=== PATIENT | male | born 1960 | race Caucasian/White ===

== ENCOUNTER 2023-05-29 01:28 | Emergency (ER) | payer OTHER, SELFPAY ==
[2023-05-29 01:35] VITALS: BP 172/79; PULSE 78; RESP 18; TEMP 36.4; O2SAT 96; BMI 29.6
--- NOTE | 2023-05-29 01:53 | ED.DENTAL1 ---
HPI - Dental/Oral General Chief complaint: Dental/Oral Stated complaint: DENTAL PAIN Time Seen by Provider: 05/29/23 01:46 Source: patient Mode of arrival: walk-in Limitations: no limitations History of Present Illness HPI Narrative: patient presents complaining of dental pain. Started around 5pm yesterday and pain has increased. No relief with Acetaminophen. No obvious swelling. No fever or nausea Teeth map: 1. Onset (ago): hour(s) Duration: constant Exacerbating factors: chewing Related Data Allergies Allergy/AdvReac Type Severity Reaction Status Date / Time cefazolin Allergy Unknown Verified 05/29/23 01:41 codeine Allergy Unknown Verified 05/29/23 01:41 Review of Systems ROS Status of ROS 10 or more systems reviewed and unremarkable except as noted in history and below [facility] Social History Smoking status: Current every day smoker Exam Constitutional Vital Signs - 24 hr 05/29/23 01:35 Temperature 97.5 F L Pulse Rate [Monitor] 78 Respiratory Rate 18 Blood Pressure [Left Arm] 172/79 H Pulse Oximetry 96 Oxygen Delivery Method Room Air Common normals: no apparent distress, average body habitus, oriented x3, no limitations and healthy appearing HENOH Common normals: normocephalic and head/scalp atraumatic Eye Common normals: PERRL, EOMs intact bilaterally and conjunctivae normal Respiratory Common normals: normal respiratory effort, no retractions, no use of accessory muscles and clear to auscultation bilaterally Cardio Common normals: regular rate, regular rhythm, S1 normal heart sound and S2 normal heart sound Extremity Common normals: normal to inspection and full ROM Neuro Common normals: oriented x3, CN's II-XII intact bilaterally, moves all extremities and no focal motor deficits Psych Appearance: grossly normal Speech: normal speech Course Vital Signs Vital signs: Vital Signs Temperature 97.5 F L 05/29/23 01:35 Pulse Rate 78 05/29/23 01:35 Respiratory Rate 18 05/29/23 01:35 Blood Pressure 172/79 H 05/29/23 01:35 Pulse Oximetry 96 05/29/23 01:35 Oxygen Delivery Method Room Air 05/29/23 01:35 Temperature 97.5 F L 05/29/23 01:35 Pulse Rate 78 05/29/23 01:35 Respiratory Rate 18 05/29/23 01:35 Blood Pressure 172/79 H 05/29/23 01:35 Pulse Oximetry 96 05/29/23 01:35 Oxygen Delivery Method Room Air 05/29/23 01:35 MDM - Dental/Oral MDM Narrative Medical decision making narrative: patient presents with dental pain. Worsening pain since last PM. left pos. lower molar is tender. No definite caries. Patient advised that he likely has underlying infection to account for progressive pain. Will treat with course of amoxicillin. Patient has allergy to cephalosporin but states he can take PCN. Discharged with prescription for Amoxicillin and provided [place] tonight for pain Discharge Plan Discharge Chief Complaint: Dental/Oral Clinical Impression: Dental abscess Instructions: Dental Abscess (ED) Additional Instructions: follow up with your dentist later this week Stand Alone Forms: Portal Instructions Referrals: Physician,Non-Staff, MD [Primary Care Provider] - 1 week
[2023-05-29] MEDS: HYDROCODONE/ACETAMINOPHEN 5-325 MG TABLET 4 TAB PO (02:11)
[2023-05-29] MEDS: AMOXICILLIN 500 MG CAPSULE 1000 MG PO (02:11)
== END 2023-05-29 02:10 | disposition home or self-care (01) ==
PROVIDERS: Emergency Provider Internal Medicine
DX: K04.7 Periapical abscess without sinus (principal); F17.210 Nicotine dependence, cigarettes, uncomplicated
CPT/HCPCS: 99283

== ENCOUNTER 2023-07-08 03:19 | Emergency (ER) | payer OTHER, SELFPAY | END 2023-07-08 05:50 | disposition home or self-care (01) | PROVIDERS: Emergency Provider Student in an Organized Health Care Education/Training Program | DX: K04.7 Periapical abscess without sinus (principal); F17.210 Nicotine dependence, cigarettes, uncomplicated | CPT/HCPCS: 99282 ==

== ENCOUNTER 2025-09-28 00:20 | Emergency (ER) | payer OTHER, SELFPAY ==
[2025-09-28] VITALS (7 sets, daily range): BP systolic 150–175; BP diastolic 72–85; PULSE 87–98; TEMP 37.3; O2SAT 88–99; BMI 31.4
--- NOTE | 2025-09-28 00:23 | ED.GENADUL1 ---
HPI HPI - General Adult General Chief complaint: Syncope Stated complaint: syncope/sob Time Seen by Provider: 09/28/25 00:22 History of Present Illness HPI narrative: 65-year-old male presented to the emergency department for a syncopal episode. He states he was in his garage and was moving some stuff around that he should have been doing and he got short of breath and he passed out. He sat down on the couch. He did not fall or injure himself in any way. He did not have any palpitations but he felt it coming on and he felt short of breath. His breathing is now back to normal. Related Data Home Medications ?Medication ?Instructions ?Recorded ?Confirmed albuterol sulfate 90 mcg/actuation 2 puff inhalation Q4H PRN 09/28/25 09/28/25 aerosol inhaler (Ventolin HFA) shortness of breath or wheezing amlodipine 10 mg tablet 10 mg PO DAILY 09/28/25 09/28/25 aspirin 81 mg tablet,delayed 81 mg PO DAILY 09/28/25 09/28/25 release atorvastatin 80 mg tablet 80 mg PO HS 09/28/25 09/28/25 citalopram 20 mg tablet 30 mg PO DAILY 09/28/25 09/28/25 clonazepam 1 mg tablet 0.5 mg PO HS 09/28/25 09/28/25 empagliflozin 10 mg tablet 25 mg PO DAILY 09/28/25 09/28/25 (Jardiance) isosorbide mononitrate 30 mg 30 mg PO DAILY 09/28/25 09/28/25 tablet,extended release 24 hr metformin 1,000 mg tablet 1,000 mg PO BID 09/28/25 09/28/25 metoprolol tartrate 25 mg tablet 25 mg PO BID 09/28/25 09/28/25 nitroglycerin 0.4 mg sublingual 0.4 mg sublingual Q5M PRN chest 09/28/25 09/28/25 tablet pain omeprazole 20 mg capsule,delayed 20 mg PO DAILY 09/28/25 09/28/25 release theophylline 300 mg 300 mg PO Q24H 09/28/25 09/28/25 tablet,extended release,12 hr tiotropium bromide 2.5 2 puff inhalation Q24H 09/28/25 09/28/25 mcg/actuation mist for inhalation (Spiriva Respimat) valsartan 320 1 tab PO DAILY 09/28/25 09/28/25 mg-hydrochlorothiazide 25 mg tablet Previous Rx's ?Medication ?Instructions ?Recorded azithromycin 250 mg tablet See Rx Instructions PO .COMPLEX #6 09/28/25 (Zithromax Z-Abdon) tabs Allergies Allergy/AdvReac Type Severity Reaction Status Date / Time cefazolin Allergy Unknown itchy Verified 09/28/25 00:33 codeine Allergy Unknown Rash Verified 09/28/25 00:33 varenicline (From Chantix) Allergy AMS Verified 09/28/25 00:33 Review of Systems ROS Narrative A ten point review of systems is negative except as noted above. 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 ?Z47.1 - Aftercare following joint replacement surgery (ICD-10) ?Z96.622 - Presence of left artificial elbow joint (ICD-10) Sleep apnea ?G47.30 - Sleep apnea, unspecified (ICD-10) Diabetes ?E11.9 - Type 2 diabetes mellitus without complications (ICD-10) COPD (chronic obstructive pulmonary disease) ?J44.9 - Chronic obstructive pulmonary disease, unspecified (ICD-10) Surgical History (Updated 09/28/25 @ 00:35 by Mary Ellen Kearney) Status post left foot surgery ?Z98.890 - Other specified postprocedural states (ICD-10) Social History Smoking status: Current every day smoker Little interest or pleasure in doing things: not at all Feeling down, depressed, or hopeless: not at all Exam Narrative Exam Narrative: Nurses note and vital signs reviewed General:The patient appears in no acute respiratory distress. Skin:Warm, dry, no pallor noted.There is no rash noted. Head:Normocephalic, atraumatic Eye: Normal conjunctiva, no drainage Ears, Nose, Mouth, and Throat: oral mucosa is moist. Nares patent. Cardiovascular:Regular Rate and Rhythm Respiratory:Patient is in no distress, no accessory muscle use, a few rhonchi noted with good air movement Back:non-tender GI: Soft and nontender Musculoskeletal: The patient has no evidence of calf tenderness, no pitting edema, symmetrical pulses noted bilaterally Neurological:A&O x4, normal speech; somewhat tremorous Psychiatric:Cooperative Constitutional Vital Signs, click to edit/add: Last Vital Signs Temp 99.2 F 09/28/25 00:26 Pulse 95 H 09/28/25 00:26 Resp 24 H 09/28/25 00:26 BP 175/85 H 09/28/25 00:26 Pulse Ox 95 09/28/25 00:26 O2 Del Method Room Air 09/28/25 00:26 Course Vital Signs Vital signs: Vital Signs Temperature 99.2 F 09/28/25 00:26 Pulse Rate 95 H 09/28/25 00:26 Respiratory Rate 24 H 09/28/25 00:26 Blood Pressure 175/85 H 09/28/25 00:26 Pulse Oximetry 95 09/28/25 00:26 Oxygen Delivery Method Room Air 09/28/25 00:26 Temperature 99.2 F 09/28/25 00:26 Pulse Rate 95 H 09/28/25 00:26 Respiratory Rate 24 H 09/28/25 00:26 Blood Pressure 175/85 H 09/28/25 00:26 Pulse Oximetry 95 09/28/25 00:26 Oxygen Delivery Method Room Air 09/28/25 00:26 Medical Decision Making MDM Narrative Medical decision making narrative: The patient has no symptoms and has not had any since he arrived here. He has no chest pain. 2 sets of troponin are unchanged. EKG shows some ST segment depression laterally but there is no previous for comparison and he is asymptomatic with 2 negative troponins. He is scheduled to see his literacy specialist for consultation to arrange possible bypass surgery. He feels back to normal now and wants to go home. The patient recalls that he has been coughing up some green phlegm for a few days so he will be prescribed Zithromax. Treatment diagnosis and follow-up were discussed with the patient. Differential Diagnosis Differential Diagnosis: Syncope, cardiac dysrhythmia, dehydration, anemia Lab Data Lab results reviewed: Yes I reviewed the patient's lab results Labs: Lab Results 09/28/25 09/28/25 Range/Units 00:20 01:12 EST WBC 19.2 H (4.0-11.0) 10^3/uL RBC 4.90 (4.70-6.10) 10^6/uL Hgb 13.9 L (14.0-18.0) g/dL Hct 42.0 (42.0-54.0) % MCV 85.7 (80.0-94.0) fL MCH 28.4 (25.9-34.0) pg MCHC 33.1 (29.9-35.2) g/dL RDW 13.8 (11.0-15.0) % Plt Count 229 (150-450) 10^3/uL MPV 10.3 (9.5-13.5) fL Seg Neuts % (Manual) 49.0 (43.0-75.0) Band Neutrophils % 1.0 (0-5) % Lymphocytes % (Manual) 39.0 (20.5-60.0) % Monocytes % (Manual) 6.0 (1.7-12.0) % Eosinophils % (Manual) 4.0 (0.9-7.0) % Basophils % (Manual) 1.0 (0.2-2.0) % Neutrophils # (Manual) 9.40 H (1.4-6.5) 10^3/uL Band Neutrophils # 0.2 (0.0-0.3) 10^3/uL Lymphocytes # (Manual) 7.48 H (1.20-3.80) 10^3/uL Monocytes # (Manual) 1.15 H (0.30-0.80) 10^3/uL Eosinophils # (Manual) 0.76 H (0.00-0.70) 10^3/uL Basophils # (Manual) 0.19 H (0.00-0.10) 10^3/uL Sodium 138 (136-145) mmol/L Potassium 4.1 (3.5-5.1) mmol/L Chloride 105 (98-107) mmol/L Carbon Dioxide 23.1 (21.0-32.0) mmol/L Anion Gap 14.0 BUN 10.0 (7.0-18.0) mg/dL Creatinine 0.73 (0.70-1.30) mg/dL Est GFR ( Amer) >60 (>=60 mL/min/1.73m^2) Est GFR (Non-Af Amer) >60 (>=60 mL/min/1.73m^2) BUN/Creatinine Ratio 13.7 Glucose 133 H (74-106) mg/dL Calcium 9.1 (8.5-10.1) mg/dL Troponin I High Sens 82.3 H* 80.9 H* (4.0-76.1) pg/mL Imaging Data Chest x-ray: My impression: No acute findings ECG Data Attestation: I personally reviewed and interpreted this ECG as follows: (EKG on my interpretation shows sinus rhythm shows sinus rhythm with ST segment depression inferior laterally. No previous for comparison.) Discharge Plan Discharge Chief Complaint: Syncope Clinical Impression: Syncope Patient Disposition: Home, Self-Care Time of Disposition Decision: :01 Condition: Good Mode of Transportation: Private Vehicle Prescriptions / Home Meds: New azithromycin [Zithromax Z-Abdon] 250 mg tablet See Rx Instructions .ROUTE .COMPLEX Qty: 6 0RF Rx Instructions: For 250 mg dose pack: take 500 mg today (day 1), then 250 mg for 4 days (days 2-5) No Action albuterol sulfate [Ventolin HFA] 90 mcg/actuation HFA aerosol inhaler 2 puff INHALATION Q4H PRN (Reason: shortness of breath or wheezing) amlodipine 10 mg tablet 10 mg PO DAILY aspirin 81 mg tablet,delayed release (DR/EC) 81 mg PO DAILY atorvastatin 80 mg tablet 80 mg PO HS citalopram 20 mg tablet 30 mg PO DAILY clonazepam 1 mg tablet 0.5 mg PO HS Jardiance 10 mg tablet 25 mg PO DAILY isosorbide mononitrate 30 mg tablet extended release 24 hr 30 mg PO DAILY metformin 1,000 mg tablet 1,000 mg PO BID metoprolol tartrate 25 mg tablet 25 mg PO BID nitroglycerin 0.4 mg tablet, sublingual 0.4 mg sublingual Q5M PRN (Reason: chest pain) omeprazole 20 mg capsule,delayed release(DR/EC) 20 mg PO DAILY theophylline 300 mg tablet extended release 12 hr 300 mg PO Q24H Spiriva Respimat 2.5 mcg/actuation mist 2 puff INHALATION Q24H valsartan-hydrochlorothiazide 320-25 mg tablet 1 tab PO DAILY Print Language: Tajik Instructions: Syncope (ED) Referrals: Physician,Non-Staff, MD [Primary Care Provider] - 1 week
--- OUTSIDE RECORDS SUMMARY | 2025-09-28 00:29 | XMS_ITS | Clinical Summary ---
Author Organization [facility] Address [address] [place] [address], [address] [place] [address] Care Team Providers Care Communication Technician Name Role Phone Unavailable Primary Care Provider Unavailabl e Social History Tobacco UseTypesPacks/DayYears UsedDateSmoking Tobacco: Never AssessedSex and Gender InformationValueDate RecordedSex Assigned at BirthNot on fileLegal Sex Male09/22/2014 10:32 AM EDTGender IdentityNot on fileSexual OrientationNot on file Plan of Treatment Not on file
--- OUTSIDE RECORDS SUMMARY | 2025-09-28 00:29 | XMS_ITS | Clinical Summary ---
Author Organization [facility] Address [address] [place] [address] Care Team Providers Care Signals Intelligence Analysis Manager Name Role Phone Zena Calvo MD Primary Care Provider [phone] Allergies Active AllergyReactionsCriticalityNoted TvmwLalynanmVqqyvfbbcqGlrptdo03/09/2024 Other Reaction(s): Anaphylaxis, rash CodeineHeadache,LithmbjZtdvkv90/09/2023 Other Reaction(s): Anaphylaxis, irritabilty EsomeprazoleHives,GI wkqndlnxhinGow44/09/2023 Other Reaction(s): Nausea, stomach upset GxpyvngirbUjxnzzc55/07/7416TnnlmxmzqpsDzedypwjabnikqAaom65/09/2023 Other Reaction(s): Swelling, dizziness Medications MedicationSigDispense QuantityRefillsLast FilledStart DateEnd DateStatus acetaminophen (Tylenol) 500 MG tablet Every 4 hours as pejsjk2309/30/2024ctive albuterol HFA 90 mcg/act inhaler Q4H as needed for Shortness Of Tondgy5511/06/2024ctive amLODIPine (Norvasc) 5 MG tablet Daily09/30/2024ctive atorvastatin (Lipitor) 80 MG tablet Daily09/30/2024ctive citalopram (CeleXA) 20 MG tablet Take 40 mg by mouth Daily03/31/2025tive clonazePAM (KlonoPIN) 1 MG tablet Daily at vqdvfeh9509/30/2024ctive empagliflozin (Jardiance) 25 MG Daily09/30/2024ctive isosorbide mononitrate ER (Imdur) 30 MG 24 hr tablet Every gionlax8212/30/2024tive metFORMIN (Glucophage) 1000 MG tablet Twice daily09/30/2024ctive metoprolol tartrate (Lopressor) 25 MG tablet Twice daily05/22/2024ctive nitroglycerin (Nitrostat) 0.[address] 1 TAB UNDER TONGUE EVERY 5 MIN UP TO 3 DOSES NEEDED FOR CHEST PAIN*CALL 911 IF PAIN OONELNR1005/22/2024ctive omega-3 (Fish Oil) 1000 MG capsule Take 1 tablet by mouth in the morning and 1 tablet in the evening.Active omeprazole (PriLOSEC) [address] capsule Take 1 tablet by mouth in the morning.Active theophylline ER (Carlos-24) 300 MG 24 hr capsule Daily09/30/2024ctive valsartan-hydroCHLOROthiazide (Diovan-HCT) 320-25 MG tablet 1 ghhilk4605/22/2024ctive tiotropium (Spiriva Respimat) 2.5 MCG/ACT inhaler INHALE 2 PUFFS BY MOUTH ONCE A DAY04/23/2024ctive magnesium oxide (Mag-Ox) 400 (240 Mg) MG tablet Take 400 mg by mouth Daily12/31/2024tive sulfamethoxazole-trimethoprim (Bactrim DS) 800-160 MG per tablet Take by mouthActive Active Problems ProblemNoted DateDiagnosed DateSebaceous cyst04/03/2025 Family History Medical HistoryRelationNameCommentsBreast cancerMotherColon cancerNeg HxOvarian cancerNeg HxPancreatic cancerNeg VuIdflwgpgJseiJmgvbkWxunmllzVhwdpra11 brothers!!FatherDeceasedMotherDeceasedSister6 sisters Social History Tobacco UseTypesPacks/DayYears UsedDateSmoking Tobacco: Every DayCigarettes Tobacco Cessation:Ready to Q uit: Not Asked; Counseling Given: Not Answered Alcohol UseStandard Drinks/WeekCommentsNot Currently0 (1 standard drink = 0.6 oz pure alcohol)Sex and Gender InformationValueDate RecordedSex Assigned at Not on fileLegal OcnNbvj6902/08/2023 6:47 PM EDTGender IdentityNot on fileSexual OrientationNot on file Last Filed Vital Signs Vital SignReadingTime TakenCommentsBlood Pressure--Pulse--Temperature-- Respiratory Rate--Oxygen Saturation--Inhaled Oxygen Concentration--Fgthmp66.3 kg (219 lb)04/03/2025 9:22 AM JLKSmmhdn359.8 cm (5' 10 )04/03/2025 9:22 AM EDTBody Mass Index31.42004/03/2025 9:22 AM EDT Plan of Treatment Not on file Insurance Care Teams Team MemberRelationshipSpecialtyStart DateEnd Date Zena Calvo MD [address] [place] [phone] PCP - GeneralFamily Medicine04/02/25
--- OUTSIDE RECORDS SUMMARY | 2025-09-28 00:29 | XMS_ITS | Clinical Summary ---
Author Organization [facility] Address [address] [place] [address] Phone Care Team Providers Care Leak Inspector Name Role Phone Zena Calvo Primary Care Provider Allergies Active AllergyReactionsCriticalityNoted CihyRcwuxpleXldvuftjdmZvfpgba49/09/2024 PfmkqcwEjguzwuiPaclmv80/09/2679SjuqgrumzxlrRgojzHlh36/09/2023rednisoneOther Vazytq0606/05/2025 shaking OulqyoizbseIwddawigqfgqnfWzoy54/09/2023 Medications MedicationSigDispense QuantityRefillsLast FilledStart DateEnd DateStatus Ventolin HFA 90 mcg/actuation inhaler INHALE 2 PUFFS INTO THE LUNGS EVERY 4 HOURS NEEDED FOR 90 DAYSActive clonazePAM (KlonoPIN) 1 mg disintegrating tablet Take 0.5 tablets by mouth as needed at bedtime.Active fish oil concentrate ([place]-3) 120-180 mg capsule Take 1 tablet by mouth 2 times a day.Active metFORMIN (Glucophage) 1,000 mg tablet Take 1 tablet (1,000 mg) by mouth 2 times daily (morning and late afternoon). Active omeprazole (PriLOSEC) [address] capsule Take 1 tablet by mouth once daily.Active theophylline ER (Carlos-Dur) 300 mg 12 hr tablet Take 1 tablet (300 mg) by mouth once daily.Active Spiriva Respimat 2.5 mcg/actuation inhaler INHALE 2 PUFFS BY MOUTH ONCE A DAY04/23/2024ctive nitroglycerin (Nitrostat) 0.4 mg SL tablet Indications:Atherosclerosis of [place] coronary artery of [place] heart without angina pectorisPLACE 1 TAB UNDER TONGUE EVERY 5 MIN UP TO 3 DOSES NEEDED FOR CHEST PAIN*CALL 911 IF PAIN PERSIST 25 tablet ctive aspirin 81 mg EC tablet Indications:Atherosclerosis of [place] coronary artery of [place] heart without angina pectoris,Hypertension, essential, benign,S/P PTCA (percutaneous transluminal coronary angioplasty)Take 1 tablet (81 mg) by mouth once daily. 90 tablet /ctive amLODIPine (Norvasc) 10 mg tablet Indications:Hypertension, essential, benignTake 1 tablet (10 mg) by mouth once daily. as directed 90 tablet ctive atorvastatin (Lipitor) 80 mg tablet Indications:Mixed hyperlipidemiaTake 1 tablet (80 mg) by mouth once daily at bedtime. 90 tablet ctive isosorbide mononitrate ER (Imdur) 30 mg 24 hr tablet Indications:Atherosclerosis of [place] coronary artery of [place] heart without angina pectoris,S/P PTCA (percutaneous transluminal coronary angioplasty),Aortic valve stenosis, etiology of cardiac valve disease unspecifiedTake 1 tablet (30 mg) by mouth once daily. 90 tablet ctive metoprolol tartrate (Lopressor) 25 mg tablet Indications:Hypertension, essential, benignTake 1 tablet (25 mg) by mouth 2 times a day. 180 tablet ctive magnesium oxide 400 mg magnesium capsule Indications:Atherosclerosis of [place] coronary artery of [place] heart without angina pectorisTake 1 capsule (400 mg) by mouth once daily. 90 capsule ctive valsartan-hydrochlorothiazide (Diovan-HCT) 320-25 mg tablet Indications:Hypertension, essential, benignTake 1 tablet by mouth once daily. 90 tablet ctive citalopram (CeleXA) 20 mg tablet Take by mouth once daily.06/20/2025tive omega 3-bgu-mmr-fish oil (Fish OiL) 1,000 (120-180) mg capsule Take 2 capsules (2,000 mg) by mouth once daily.01/23/2024ctive amLODIPine (Norvasc) 5 mg tablet Take 1 tablet (5 mg) by mouth early in the morning..06/20/2025tive albuterol 2.5 mg /3 mL (0.083 %) nebulizer solution Take 3 mL (2.5 mg) by nebulization every 4 hours if needed.5Active Jardiance 25 mg Take 1 tablet (25 mg) by mouth once daily.iscontinued () Active Problems ProblemNoted DateDiagnosed DateBMI 30.0-30.9,adult05/29/2025urrent smoker 05/22/2024OE (dyspnea on exertion)05/22/2024ortic oaeqvutw18/09/2023 Atherosclerosis of [place] coronary artery of [place] heart without angina jkpolrzp17/09/2023hest pain09/04/2023OPD (chronic obstructive pulmonary disease)09/04/2023ough syncope qntidhag93/09/9792Gkupnpcv83/09/2023 Hypertension, essential, vpzjda9709/04/2023LVH (left ventricular hypertrophy) 09/04/2023Mixed ejrqwslrqhriix93/09/2023S/P PTCA (percutaneous transluminal coronary angioplasty)09/04/2023arotid bruit09/04/2023Murmur, heart09/04/2023 Intermittent ogwbuhdaxbic78/09/2023 Resolved Problems ProblemNoted DateDiagnosed DateResolved DateBMI 29.0-29.9,adult05/22/2024 05/29/2025 Encounters DateTypeDepartmentCare RclyIxboscxkman28/02/2025Telephone [facility] [employer] [facility] [address] [employer] [facility] [address] [place] [phone] London Weston MD 08/25/2025Orders Only [facility] [employer] [facility] [address] [facility] [address] [address] [place] [phone] LungMarquis RN 08/15/2025Orders Only [facility] [address] [employer] [facility] [address] [place] [phone] Marquis Davidson RN Nonrheumatic aortic (valve) stenosis; Preoperative kbrjhlq6508/15/2025Orders Only [facility] [place] [address] [place] [address] Racheal Bridges, JUAN LUIS Nonrheumatic aortic (valve) stenosis (Primary Dx)08/15/2025Telephone [facility] [place] [address] [place] [address] [place] [address] Racheal Bridges, JUAN LUIS 08/11/2025ardiology Conference [facility] [place] [address] [place] [address] [place] [address] Joellen Brown RN 08/06/2025 3:00 PM EDTOffice Visit [facility] [address] [address] [place] [phone] London Weston MD Nonrheumatic aortic (valve) stenosis (Primary Dx)08/06/2025 2:30 PM EDTOffice Visit [facility] [address] [facility] [address] [place] [phone] Albert Malloy MD Severe aortic stenosis (Primary Dx) Discharge Disposition: Home08/06/2025Telephone [facility] [address] [place] [address] [place] [address] Racheal Bridges, JUAN LUIS 08/06/20250418Ydenqf93/22/2025 8:20 AM EDT - 07/18/2025 11:59 PM EDTHospital Encounter [facility] [address] [place] [phone] Nonrheumatic aortic (valve) stenosis Discharge Disposition: Home07/18/20255225Bloqpk68/21/2025Scanned Document [facility] [address] [place] [phone] Scanning, Generic Provider 07/17/2025Orders Only [facility] [address] [place] [address] Yg Sharma DO 07/07/2025Telephone [facility] [address] [phone] Yg Sharma, from Last 3 Months Immunizations ImmunizationAdministration DatesNext DueFlu vaccine (IIV4), preservative free *Check age/dose*11/22/2019 Family History Medical HistoryRelationNameCommentsDiabetesFathermiFatherNo Known ProblemsMother Coronary artery diseaseSistercabgSisterRelationNameStatusCommentsFatherMother Sister Social History Tobacco UseTypesPacks/DayYears UsedDateSmoking Tobacco: WtjdgkWrigbpprwu3066 - 2024Smokeless Tobacco: Never Tobacco Cessation:Counseling Given: Not Answered Alcohol UseStandard Drinks/WeekCommentsNever0 (1 standard drink = 0.6 oz pure alcohol)PHQ-2AnswerDate RecordedPatient Health Questionnaire-2 Ealrc112 Sex and Gender InformationValueDate RecordedSex Assigned at BirthNot on file Legal HyvKnvl49/26/2022 1:52 PM ESTGender IdentityNot on fileSexual Orientation Not on file Last Filed Vital Signs Vital SignReadingTime TakenCommentsBlood Ozltjltp233/7209 2:19 PM EDT Gasne3926 2:19 PM PCDYtjpezqcpuk73.5 ??C (97.7 ??F)08/06/2025 2:19 PM EDTRespiratory Rate--Oxygen Xysqywrfhw33%08/06/2025 2:19 PM EDTInhaled Oxygen Concentration--Kkzufv61.8 kg (220 lb)08/06/2025 2:19 PM XTFTwtspv815.8 cm (5' 10 )08/06/2025 2:19 PM EDTBody Mass Index31.5709 2:19 PM EDT Plan of Treatment DateTypeDepartmentCare Team (Latest Contact Info)Lkafhyrfbro09/06/2025 9:30 AM ESTAppointment [facility] [address] [place] [address] 10/02/2025 10:00 AM ESTAppointment [facility] [address] [place] [address] 10/17/2025 10:00 AM ESTOffice Visit [facility] [employer] [facility] [address] [facility] [address] [place] [address] [place] [address] Department [place] [address] 12/10/2025 10:10 AM ESTOffice Visit [facility] [address] [facility] [address] [place] [address] Yg Sharma, [address] [facility] [address] [place], [place] [phone] Health MaintenanceDue DateLast DoneCommentsCT Qvligfciaevy1961Colonoscopy 1Colorectal Cancer Uagcyzvjt1961iabetes: Hemoglobin A1C 1961iabetes: Urine Protein Azzlvxpuh1961FIT-DNA (Cologuard) 1960FIT1960HIV Vjtkuwkox17/02/5612Afejimyofpcpp1961MMR Vaccines (1 of 1 - Standard series)2COVID-19 Vaccine (#1)1966 Diabetes: Retinopathy Jstmafjgq75/02/1971Hepatitis C Ykxypxjxu08/02/1979 Hepatitis A Vaccines (1 of 2 - Risk 2-dose series)1980Pneumococcal Vaccine (1 of 2 - PCV)1980Zoster Vaccines (1 of 2)1980DTaP/Tdap/Td Vaccines (1 - Tdap)1983PSA Prostate Cancer Bssaoolis70/02/2011RSV High Risk: (Elderly (60+) or Population) (1 - Risk 50-74 years 1-dose series) 2011Hepatitis B Vaccines (1 of 3 - Risk 3-dose series)1Lipid Panel04//04/2021Yearly Adult Iudvndao60/05/2021Influenza Vaccine (#1)HIB VaccinesAged OutNo longer eligible based on patient's age to complete this topicHPV VaccinesAged OutNo longer eligible based on patient's age to complete this topicIPV VaccinesAged OutNo longer eligible based on patient's age to complete this topicMeningococcal VaccineAged OutNo longer eligible based on patient's age to complete this topicRotavirus Vaccines Aged OutNo longer eligible based on patient's age to complete this topic Procedures Procedure NamePriorityDate/TimeAssociated DiagnosisCommentsCT TAVR FULL CONTRAST CHEST ABDOMEN TEYUGHLrqpisi38/22/2025 9:20 AM EDT Nonrheumatic aortic (valve) stenosis ELECTROCARDIOGRAM 12 LEAD07/17/2025 8:07 AM EDT NON-[facility] HIE BLOOD UREA REYHQDZMOqnghil47/21/2025 8:00 AM EDT NON-[facility] HIE EICPZHGUAHRYQpzswjn54/21/2025 8:00 AM EDT NON-[facility] HIE RCOYHGBMRTHmzgnxf80/21/2025 8:00 AM EDT NON-[facility] HIE DIFF AND UMXDnpckgy49/21/2025 7:38 AM EDT NON-[facility] HIE COAGULATION DFDOWWWErjqeez19/21/2025 7:38 AM EDT LIPID MNIJYBpxczaa37/06/2021 9:25 AM EDT from Last 3 Months or Most Recently Relevant to Health Maintenance Results * CT TAVR full contrast chest abdomen pelvis (07/18/2025 9:20 AM EDT)Anatomical RegionLateralityModalityThoracic, BodyComputed TomographySpecimen (Source) Anatomical Location / LateralityCollection Method / VolumeCollection Time Received Time07/18/2025 1:48 PM EDT07/18/2025 3:58 PM EDT Addenda Addendum by Julio Pryor MD on 07/18/2025 3:57 PM EDT Interpreted By: ??Julio Pryor, ADDENDUM: NON-CARDIOVASCULAR CHEST FINDINGS ?? LUNGS / AIRSPACES / AIRWAYS: Airways: The trachea and central major airways are clear; no endobronchial filling defect. Lungs / airspaces: 3 x 2.5 cm cavitary right lower lobe nodule versus inflamed emphysematous bleb has a substantial rind of ground-glass airspace. It is isolated, the only such lesion. In the right upper lobe on series 504, image 111, there are two small ground-glass composition right upper lobe nodules larger about 1 cm. Scattered calcified granulomas. Generalized pattern of tiny centrilobular ground-glass nodules suggesting bronchiolitis or other distal small airways infectious or inflammatory process ?? PLEURA: Effusion: Smallest detectable quantity free-flowing right; left negative Pneumothorax: Both sides negative Other: n/a ?? NONVASCULAR MEDIASTINUM: Esophagus: Grossly normal by CT Mediastinal Mass: Negative Hiatal hernia: None ?? LYMPH NODES: Symmetric bilateral hilar adenopathy and few mildly enlarged mediastinal nodes that AP window and paratracheal and subcarinal positions. Only two of the subcarinal nodes are calcified from granulomatous disease. The others are noncalcified, indeterminate ?? CHEST WALL: Two or three cutaneous/subcutaneous cysts on right and paramidline subcutaneous back fat, probably related to a cutaneous appendage such as sebaceous cysts ?? THORACIC SKELETON: No acute or contributory abnormality ?? ------- ?? NON-CARDIOVASCULAR ABDOMINAL/PELVIC FINDINGS ?? Evaluation of solid organs is limited due to arterial phase contrast bolus timing ?? LIVER: 1 cm simple cyst in the right lobe near the dome, of highly doubtful clinical consequence. No mass suspect for metastatic disease or other neoplasm. Not fatty, enlarged or cirrhotic. All vessels patent ?? SPLEEN: Size borderline. No mass. The vein is patent ?? PANCREAS: Normal. No CT evidence of acute or chronic pancreatitis. No duct dilation. No mass. ?? GALLBLADDER: Normal CT appearance. No dilation, calcified, or gas-containing stones. ??Other types of gallstones could be occult on CT and detectable only by ultrasound. ?? BILE DUCTS: Normal. No biliary duct dilation. ?? ADRENAL GLANDS: Normal. No nodule or mass. ?? KIDNEYS AND URETERS: Normal except for one small simple renal cysts (Bosniak Type 1, do not require follow-up) left kidney between the poles. No hydronephrosis on either side. ??No mass. ??Symmetric enhancement. ??No infarct or CT evidence of acute pyelonephritis. ??No substantial radiodense stone. ??Tiny stones and radiolucent stones could be occult on CT. ?? LYMPH NODES: No adenopathy, intraperitoneal, retroperitoneal, pelvic or otherwise ?? APPENDIX: Normal. ??Not dilated, thick walled or in any other way inflamed in appearance. ??No inflammatory change about the appendix. ?? COLON: Normal. No sign of acute diverticulitis or other colitis. No annular constricting mass. ?? SMALL BOWEL: Normal. No small bowel dilation or any other sign of small bowel obstruction. No sign of active inflammatory bowel disease. ?? STOMACH / DUODENUM: Grossly normal by CT which has limited sensitivity and specificity for the stomach and duodenum. ?? RETROPERITONEUM: Normal. ??No acute hemorrhage or inflammatory change. Lymph nodes in a separate dedicated section. ?? OMENTUM, MESENTERY AND PERITONEAL SPACES: Free intraperitoneal air: Negative Free intraperitoneal fluid: Negative Abscess: Negative Other: n/a ?? URINARY BLADDER: Normal. No wall thickening, large diverticula, radiodense stone or surrounding inflammatory change. ?? PELVIS: Mild enlargement of the prostate. No pelvic mass, adenopathy or free fluid. ?? ABDOMINAL WALL: Hernia: Tiny fat containing umbilical Other: No acute or contributory abnormality. ?? ABDOMINAL AND PELVIC SKELETON: No acute or contributory abnormality ?? ------- ?? NON-CARDIOVASCULAR IMPRESSION FOR CHEST, ABDOMEN AND PELVIS ?? 3 X 2.5 CM RIGHT LOWER LOBE CAVITARY NODULE VERSUS INFLAMED EMPHYSEMATOUS BLEB ?? SYMMETRIC MILD BILATERAL HILAR ADENOPATHY ?? FOLLOW-UP CT CHEST RECOMMENDED IN ONE MONTH TO RE-EVALUATE THESE FINDINGS ?? NO OTHER ACUTE UNEXPECTED FINDINGS IN THE CHEST OUTSIDE THE CARDIOVASCULAR SYSTEM; NONE AT ALL IN THE ABDOMEN OR PELVIS OUTSIDE THE CARDIOVASCULAR SYSTEM ?? NOTE THIS ADDENDUM IS SOLELY FOR INTERPRETATION OF ANATOMY OUTSIDE THE CARDIOVASCULAR SYSTEM. INTERPRETATION OF AND REPORTING OF THE CARDIOVASCULAR STRUCTURES ARE THE SOLE RESPONSIBILITY OF THE FREIGHT CONDUCTOR SUBMITTING THE ORIGINAL REPORT (NOT THIS ADDENDUM) ?? Signed by: Julio Pryor 07/18/2025 3:57 PM ?? -------- ORIGINAL REPORT -------- Dictation workstation: ?? [id number] Impressions 07/18/2025 1:47 PM EDT 1. Calcified trileaflet aortic valve. Aortic valve calcium score 1274 2. Aortic annulus ??34 x 24mm 3. ??Mild atherosclerosis of thoracic aorta without evidence of aneurysm, dissection, or coarctation. 4. ??Mild atherosclerosis of abdominal aorta without evidence of aneurysm or dissection. ?? Reading Grant Manager: ??Reinaldo Guillory, Date: ??07/18/2025 ??1:44 pm ?? Signed by: Reinaldo Guillory 07/18/2025 1:47 PM Dictation workstation: ?? [id number] Narrative 07/18/2025 1:47 PM EDT Interpreted By: Reinaldo Gulilory, STUDY: CT TAVR FULL CONTRAST CHEST ABDOMEN PELVIS; ??07/18/2025 9:20 am ?? INDICATION: Signs/Symptoms:Aortic Stenosis. ?? COMPARISON: None. ?? ACCESSION NUMBER(S): [id number] ?? ORDERING CLINICIAN: ALBERT MALLOY ?? TECHNIQUE: Multi-detector CT technology was employed Reggie CT 64-slice scanner. ??Helical multidetector acquisition of the chest with retrospective gating and minimal slice thickness was performed prior to and following the intravenous administration of contrast material. Subsequently, contrast enhanced CT examination of the abdomen and pelvis was obtained. A low-osmolar contrast agent was used 100ml of Omnipaque 350. Using prospective ECG gating, CT scan of the aortic valve was performed without intravenous contrast. Aortic valve calcium scoring was performed according to the method of Agatston. ?? For optimization of anatomic evaluation, multiplanar reconstruction, maximum intensity projections, and advanced 3-D off-line postprocessing were performed on a dedicated stand-alone workstation under the direct supervision of the interpreting physician. ?? CT Dose-Length Product (DLP): 2779.3 mGy*cm CT Dose Reduction Employed: Yes iterative reconstruction ?? FINDINGS: CARDIAC CT WITHOUT CONTRAST ?? Aortic Valve calcium score: ??1274 ?? CTA CHEST WITH CONTRAST ? THORACIC AORTIC DIMENSIONS: Aortic annulus:34 x 24mm. Sinus of Valsalva(coronal):36 mm Across sinuses(cusp-commissure):35mm. Sinotubular junction:31mm. Ascending aorta (RPA level):36mm. Upper ascending aorta:34mm. Arch(mid):28mm. Arch(distal):29mm. Descending aorta(PA level):27mm. Descending aorta (diaphragm level):24mm. Main pulmonary artery:31mm. Right pulmonary artery:23 mm. Left pulmonary artery:25mm. No evidence of thoracic aortic dissection or coarctation. ?? Aortic Valve: Calcified trileaflet ?? Pulmonary Veins: Normal pulmonary vein anatomy without evidence of anomalous pulmonary venous return. No pulmonary vein stenosis ? CORONARY ARTERIES: The examination is not optimized for assessment of the coronary arteries. Normal coronary artery origins. ??Right dominant system. Diffuse coronary artery calcification. ?? CARDIAC CHAMBERS: Normal atrioventricular and ventriculoarterial concordance. Dilated left atrium 5.5 cm. ?? CTA ABDOMEN/PELVIS WITH CONTRAST ?? ABDOMINAL AORTIC DIMENSIONS: Descending aorta diaphragm level:24mm. Descending aorta renal artery level:23mm. Descending aorta infrarenal:25mm. Descending aorta distal before bifurcation:23 mm. No abdominal aorta dissection. ?? Celiac artery: Mild atherosclerosis. Superior mesenteric artery: Mild atherosclerosis. Right renal artery: Normal. Left renal artery: Normal. Right common iliac artery: Mild atherosclerosis. Left common iliac artery: Mild atherosclerosis. Right external iliac artery: Mild atherosclerosis. Left external iliac artery: Mild atherosclerosis. Right common femoral artery: Mild atherosclerosis. Left common femoral artery: Mild atherosclerosis. ? Procedure Note Reinaldo Guillory DO / Julio Pryor MD - 07/18/2025 Interpreted By: Reinaldo Guillory, STUDY: CT TAVR FULL CONTRAST CHEST ABDOMEN PELVIS; 07/18/2025 9:20 am INDICATION: Signs/Symptoms:Aortic Stenosis. COMPARISON: None. ACCESSION NUMBER(S): [id number] ORDERING CLINICIAN: ALBERT MALLOY TECHNIQUE: Multi-detector CT technology was employed Reggie CT 64-slice scanner. Helical multidetector acquisition of the chest with retrospective gating and minimal slice thickness was performed prior to and following the intravenous administration of contrast material. Subsequently, contrast enhanced CT examination of the abdomen and pelvis was obtained. A low-osmolar contrast agent was used 100ml of Omnipaque 350. Using prospective ECG gating, CT scan of the aortic valve was performed without intravenous contrast. Aortic valve calcium scoring was performed according to the method of Agatston. For optimization of anatomic evaluation, multiplanar reconstruction, maximum intensity projections, and advanced 3-D off-line postprocessing were performed on a dedicated stand-alone workstation under the direct supervision of the interpreting physician. CT Dose-Length Product (DLP): 2779.3 mGy*cm CT Dose Reduction Employed: Yes iterative reconstruction FINDINGS: CARDIAC CT WITHOUT CONTRAST Aortic Valve calcium score: 1274 CTA CHEST WITH CONTRAST THORACIC AORTIC DIMENSIONS: Aortic annulus:34 x 24mm. Sinus of Valsalva(coronal):36 mm Across sinuses(cusp-commissure):35mm. Sinotubular junction:31mm. Ascending aorta (RPA level):36mm. Upper ascending aorta:34mm. Arch(mid):28mm. Arch(distal):29mm. Descending aorta(PA level):27mm. Descending aorta (diaphragm level):24mm. Main pulmonary artery:31mm. Right pulmonary artery:23 mm. Left pulmonary artery:25mm. No evidence of thoracic aortic dissection or coarctation. Aortic Valve: Calcified trileaflet Pulmonary Veins: Normal pulmonary vein anatomy without evidence of anomalous pulmonary venous return. No pulmonary vein stenosis CORONARY ARTERIES: The examination is not optimized for assessment of the coronary arteries. Normal coronary artery origins. Right dominant system. Diffuse coronary artery calcification. CARDIAC CHAMBERS: Normal atrioventricular and ventriculoarterial concordance. Dilated left atrium 5.5 cm. CTA ABDOMEN/PELVIS WITH CONTRAST ABDOMINAL AORTIC DIMENSIONS: Descending aorta diaphragm level:24mm. Descending aorta renal artery level:23mm. Descending aorta infrarenal:25mm. Descending aorta distal before bifurcation:23 mm. No abdominal aorta dissection. Celiac artery: Mild atherosclerosis. Superior mesenteric artery: Mild atherosclerosis. Right renal artery: Normal. Left renal artery: Normal. Right common iliac artery: Mild atherosclerosis. Left common iliac artery: Mild atherosclerosis. Right external iliac artery: Mild atherosclerosis. Left external iliac artery: Mild atherosclerosis. Right common femoral artery: Mild atherosclerosis. Left common femoral artery: Mild atherosclerosis. IMPRESSION: 1. Calcified trileaflet aortic valve. Aortic valve calcium score 1274 2. Aortic annulus 34 x 24mm 3. Mild atherosclerosis of thoracic aorta without evidence of aneurysm, dissection, or coarctation. 4. Mild atherosclerosis of abdominal aorta without evidence of aneurysm or dissection. Reading Grant Manager: Dr. Reinaldo Guillory, Date: 07/18/2025 1:44 pm Signed by: Reinaldo Guillory 07/18/2025 1:47 PM Dictation workstation: [id number] Authorizing ProviderResult TypeResult StatusAlbert Malloy MDIMG CT PROCEDURES Edited Result - Final * Electrocardiogram (07/17/2025 8:07 AM EDT)Specimen (Source)Anatomical Location / LateralityCollection Method / VolumeCollection TimeReceived Time07/17/2025 8:07 AM EDT Narrative [facility] - 07/17/2025 8:32 AM EDT [facility] ?[facility] [place] ?[address] ? [place] [address] ? Electrocardiograph Report ? Signed ? Patient: Florentin Katz ?MR#: [id number] ?? 88 ? : 1960 ?Acct:[id number] ? Age/Sex: 65 / M ?ADM Date: 07/17/25 ? Loc: CL ?Room: ?Type: REG SDC ?? Attending Dr: Hussein Sharma DO ? Ordering Provider: Hussein Sharma, DO ?? Date of Service: 07/17/25 ?? ECG/ECG 12 lead ECG: [facility] ? Copies to: ? Test Reason : ?? Blood Pressure : ?? */* ?? mmHG ?? Vent. Rate : ??66 BPM ? Atrial Rate : ??66 BPM ? P-R Int : 192 ms ?QRS Dur : 102 ms ?QT Int : 408 ms ? P-R-T Axes : ??38 ??55 249 degrees ?QTcB Int : 427 ms ? Normal sinus rhythm ?? Left ventricular hypertrophy with repolarization abnormality ( Sokolow-Baird ) ?? Abnormal ECG ?? When compared with ECG of 05-Jun-2025 09:38, ?? No significant change was found ?? Confirmed by BRONSON SOLORZANO MD ([id number]) on 07/17/2025 8:32:16 AM ? Referred By: ?Electronically Signed By: BRONSON SOLORZANO MD ? Transcribed By: ? MUS ? Signed By ? Bronson Solorzano MD ?0 ?? 07/17/25 0832 Authorizing ProviderResult TypeResult StatusWibritneym S Zachary DOECG ORDERABLES Final ResultPerforming OrganizationAddressty/State/ZIP CodePhone Number [facility] [address] [place], [place] [address], * NON-[facility] HIE Blood Urea Nitrogen (07/17/2025 8:00 AM EDT)ComponentValueRef Range Test MethodAnalysis TimePerformed AtPathologist SignatureNON- HIE Blood Urea Cxszrkes819 - 25 mg/dLKing'S Daughters [facility] [place] CtrSpecimen (Source) Anatomical Location / LateralityCollection Method / VolumeCollection Time Received TimeALL[facility] Plasma specimen or serum specimen or whole blood specimen 07/17/2025 8:00 AM EDT Narrative Authorizing ProviderResult TypeResult StatusWilliam S Zachary DOLAB BLOOD ORDERABLESFinal ResultPerforming OrganizationAddRiddle Hospital/[facility] HospitalPhone Number [facility] [address] [place] [address], [facility] [address] [place] [address] * NON-[facility] HIE Electrolytes (07/17/2025 8:00 AM EDT)ComponentValueRef RangeTest MethodAnalysis TimePerformed AtPathologist SignatureNON-UH HIE Xfscku134654 - 145 mmol/LFirelands Regional Medical CtrNON-[facility] HIE Potassium4.43.5 - 5.1 mmol/LFTwin City Hospital HIE Qjfatqdt91354 - 107 mmol/L [facility] HIE Carbon Zphjlwv81.521.0 - 31.0 mmol/L [facility] Anion Gap12.96.0 - 15.0[facility] [place] CtrSpecimen (Source)Anatomical Location / Laterality Collection Method / VolumeCollection TimeReceived TimeALLIANCEHEALTH [facility] [place] Plasma specimen or serum specimen or whole blood /21/2025 8:00 AM EDT Narrative Authorizing ProviderResult TypeResult StatusWilliam S Zachary DOL BLOOD ORDERABLESFinal ResultPerforming OrganizationAddressCity/State/[facility] CodePhone Number [facility] [address] [place] [address], [facility] [address] [place] [address] * NON-[facility] HIE Creatinine (07/17/2025 8:00 AM EDT)ComponentValueRef RangeTest MethodAnalysis TimePerformed AtPathologist SignatureMARGARET MARY COMMUNITY HOSPITALE Creatinine0.74 0.70 - 1.30 mg/dLOhioHealth [facility]field Hospital HIE ESTIMATED GFR>60.0 [facility] Creatinine Clr Calc Ebocdtoy103.11 [facility] [place] CtrComment:PERFORMED BY:[facility] [place], [place] [phone] MEDICAL SILVESTRE MANNING M.D.Specimen (Source)Anatomical Location / Laterality Collection Method / VolumeCollection TimeReceived [facility] Plasma specimen or serum specimen or whole blood cyrssydb25/21/2025 8:00 AM EDT Narrative Authorizing ProviderResult TypeResult StatusWilliam S Zachary DOLAB BLOOD ORDERABLESFinal ResultPerforming OrganizationAddressCity/State/[facility] CodePhone Number [facility] [address] [place] [address], [facility] [address] [place] [address] * (ABNORMAL) NON-[facility] HIE Diff and CBC (07/17/2025 7:38 AM EDT)ComponentValueRef RangeTest MethodAnalysis TimePerformed AtPathologist SignatureNON- HIE White Blood Count14.4(H)4.1 - 10.5 [CFU]/mLMemorial HospitalNON- HIE Uncorrected WBC14.4(H)4.1 - 10.5 10*3/[facility] Red Blood Count4.823.90 - 5.60 10*6/[facility] CtrNON-[facility] HIE Slwogzljcc80.113.0 - 17.0 g/dLMemorial HospitalNON-UH HIE Yrohmolssf53.638.8 - 50.0 %[facility] HospitalNON-[facility] HIE Mean Corpuscular Adqush45.483.5 - 101 [facility] CtrNON-UH HIE Mean Corpuscular Xbvmcfyoah01.227.5 - 35.2 pgFCleveland [facility] NON- HIE Mean Corpuscular HGB Conc33.832.5 - 35.6 g/dLMemorial HospitalNON- HIE Red Cell Distribution Width14.612.0 - 14.8 %[facility] HospitalNON- HIE Platelet Tpdfr166816 - 450 10*3/[facility]NON- [facility]IE Mean Platelet Volume8.56.6 - 10.1 [facility] CtrComment:PERFORMED BY:[facility] [facility], [place] [id number] MEDICAL DIRECTORDICK MANNING M.D.Specimen (Source)Anatomical Location / LateralityCollection Method / VolumeCollection TimeReceived TimeALLIANCEHEALTH [facility] [place] Whole blood uolwvhvt69/21/2025 7:38 AM EDT Narrative Authorizing ProviderResult TypeResult StatusWixenia ARVIZU BLOOD ORDERABLESFinal ResultPerforming OrganizationAddressCity/State/ZIP CodePhone Number [facility] [address] [place] [address], [facility] [address] [place] [address] * NON-[facility] HIE Coagulation Profile (07/17/2025 7:38 AM EDT)ComponentValueRef Range Test MethodAnalysis TimePerformed AtPathologist SignatureNON- HIE Prothrombin Time11.09.0 - [address].9 [facility] CtrComment:A hematocrit value greater than 55% may lead to inaccurate results in coagulation testing. Patientshaving hematocrit values >55% require a special collection tube for coagulation studies. Please contact the laboratory at [phone] for redraw instructions.NON-[facility] HIE INR1.0[facility] [place] CtrComment:INR Therapeutic Range A) Pre- and Peroperative OAT started two weeks before surgery. NOT HIP SURGERY: 1.5 - 2.5 HIP SURGERY: 2 - 3 B) Primary and secondary prevention of venous THROMBOSIS: 2 - 3 C) Active venous thrombosis, pulmonary embolism and prevention of recurrent venous thrombosis: 2 - 3 D) Prevention of arterial thromboembolism including patients with mechanical heart valves: 3 - 4.5NON- HIE Partial Thromboplastin Time30.925.1 - 36.5 [facility] CtrComment:A hematocrit value greater than 55% may lead to inaccurate results in coagulation testing. Patientshaving hematocrit values >55% require a special collection tube for coagulation studies. Please contact the laboratory at [phone] for redraw instructions.PERFORMED BY:[facility] [facility] HOSPITALEmileGRE[place]WO[place], [place] [phone] MEDICAL DIRECTORDICK MANNING M.D.Specimen (Source)Anatomical Location / LateralityCollection Method / VolumeCollection TimeReceived TimeALLIANCEHEALTH CLINTON [facility] [place] Platelet poor plasma myqccnqh88/21/2025 7:38 AM EDT Narrative Authorizing ProviderResult TypeResult StatusWixenia Sharma [facility] BLOOD ORDERABLESFinal ResultPerforming OrganizationAddressCity/State/ZIP CodePhone Number [facility] [address] [place] [address], [facility] [address] [place] [address] * (ABNORMAL) Lipid Panel (03/02/2021 9:25 AM EDT)ComponentValueRef RangeTest MethodAnalysis TimePerformed AtPathologist HfhsfsskfScxjscpxcsi6146 - 199 mg/dLHCA FLORIDA ENG[facility]WOOD [facility] LABComment: . ?AGE ?DESIRABLE ?? BORDERLINE HIGH ?? HIGH 0-19 Y 0 - 169 170 - 199 >/= 200 20-24 Y 0 - 189 190 - 224 >/= 225 >24 Y 0 - 199 200 - 239 >/= 240 All ranges are based on fasting samples. Specific therapeutic targets will vary based on patient-specific cardiac risk. . Pediatric guidelines reference:Pediatrics 2011, 128(S5). Adult guidelines reference: NCEP ATPIII Guidelines, ??CARMELA 2001, 258:2486-97 . Venipuncture immediately after or during the administration of Metamizole may lead to falsely low results. Testing should be performed immediately prior to Metamizole dosing. HDL25.0(A)mg/dLHCA FLORIDA ENG[facility]WOOD HOS[facility] LABComment: . ?AGE ?VERY LOW ?? LOW ? NORMAL ?HIGH ?? 0-19 Y < 35 < 40 40-45 ---- 20-24 Y ---- < 40 >45 ---- >24 Y ---- < 40 40-60 >60 . Cholesterol/HDL Ratio6.8(A)[facility] LABComment: REF VALUES DESIRABLE < 3.4 HIGH RISK > 5.0 LDL-0 - 99 mg/dLHCA FLOR[facility] LABComment: . ? NEAR ?BORD ?AGE ?DESIRABLE ??OPTIMAL ?HIGH ? HIGH ? VERY HIGH 0-19 Y 0 - 109 --- 110-129 >/= 130 ---- 20-24 Y 0 - 119 --- 120-159 >/= 160 ---- >24 Y 0 - 99 100-129 130-159 160-189 >/=190 . THE CALCULATION OF LDL AND VLDL ARE INACCURATE WHEN TRIGLYCERIDES ARE GREATER THAN 400 MG/DL OR WHEN THE PATIENT IS NON-FASTING. IF LDL MEASUREMENT IS NECESSARY CONTACT THE TESTING LABORATORY FOR AN ALTERNATIVE LDL ASSAY. VLDLSEE COMMENT0 - 40 mg/dLHCA FLORIDA [facility] LABComment:Unable to calculate VLDL.Kbtpladqirusj069(H)0 - 149 mg/dLHCA FLORIDA [facility]WO[facility] LABComment: . ?AGE ?DESIRABLE ?? BORDERLINE HIGH ?? HIGH ? VERY HIGH 0 D-90 D ?19 - 174 ? ---- ? ---- ?---- 91 D- 9 Y 0 - 74 75 - 99 >/= 100 ---- 10-19 Y 0 - 89 90 - 129 >/= 130 ---- 20-24 Y 0 - 114 115 - 149 >/= 150 ---- >24 Y 0 - 149 150 - 199 200- 499 >/= 500 . Venipuncture immediately after or during the administration of Metamizole may lead to falsely low results. Testing should be performed immediately prior to Metamizole dosing. Specimen (Source)Anatomical Location / LateralityCollection Method / Volume Collection TimeReceived Time03/02/2021 9:25 AM EDT03/02/2021 5:59 PM EDT Narrative Authorizing ProviderResult TypeResult StatusMicNYU Lang[facility] – [facility] BLOOD ORDERABLESFinal ResultPerforming OrganizationAddressCity/State/ZIP CodePhone Number [facility] from Last 3 Months or Most Recently Relevant to Health Maintenance Insurance Care Teams Team MemberRelationshipSpecialtyStart DateEnd Date Zena Calvo DO [address] [place] [address] [address] [facility] - Xovxora62/15/21
--- NOTE | 2025-09-28 00:32 | XR_ITS ---
The [address] [address] Patient Name: EDSON LAN MRN: [id number] date: 1960 Sex: M Assigned Patient Location: ED.MAIN Current Patient Location: Accession/Order Number: [id number] Exam Date: 09/28/2025 00:28 Report Date: 09/28/2025 07:51 At the request of: MILTON CONTRERAS MD Procedure: XR chest 1V PA CHEST: CLINICAL HISTORY: Syncope COMPARISON: 01/30/2022 FINDINGS: Mildly prominent cardiomediastinal silhouette. Minimal perihilar congestion. Left lung is grossly patent. Right basilar airspace disease and interstitial opacity noted. No effusion or pneumothorax. XR/XR chest 1V IMPRESSION: Right basilar interstitial and alveolar opacity worrisome for airspace disease. Impression dictated by: Fady Thompson M.D. 09/28/2025 7:51 AM Dictation Location: [place] [address] Electronically authenticated by: [id number] Y Date: 09/28/2025 07:51
[2025-09-28 00:40] LABS: Hematocrit 42.0 % (42.0-54.0); Hemoglobin 13.9 g/dL (14.0-18.0); Mean Corpuscular HGB Conc 33.1 g/dL (29.9-35.2); Mean Corpuscular Hemoglobin 28.4 pg (25.9-34.0); Mean Corpuscular Volume 85.7 fL (80.0-94.0); Platelet Count 229 10^3/uL (150-450); Red Blood Count 4.90 10^6/uL (4.70-6.10); White Blood Count 19.2 10^3/uL (4.0-11.0)
[2025-09-28 00:53] LABS: Anion Gap 14.0; Blood Urea Nitrogen 10.0 mg/dL (7.0-18.0); Calcium 9.1 mg/dL (8.5-10.1); Carbon Dioxide 23.1 mmol/L (21.0-32.0); Chloride 105 mmol/L (98-107); Estimated GFR (African America >60 (>=60 mL/min/1.73m^2); Estimated GFR (Non-African Ame >60 (>=60 mL/min/1.73m^2); Glucose 133 mg/dL (74-106); Potassium 4.1 mmol/L (3.5-5.1); Sodium 138 mmol/L (136-145)
--- NOTE | 2025-09-28 00:56 | PC.NURSE ---
critical trop. repeat trop in 1 hour from 1st draw
[2025-09-28 00:58] LABS: Band Neutrophils Absolute 0.2 10^3/uL (0.0-0.3); Basophils Abs Manual 0.19 10^3/uL (0.00-0.10); Basophils Percent Manual 1.0 % (0.2-2.0); Eosinophils Absolute Manual 0.76 10^3/uL (0.00-0.70); Eosinophils Percent Manual 4.0 % (0.9-7.0); Lymphocytes Absolute Manual 7.48 10^3/uL (1.20-3.80); Lymphocytes Percent Manual 39.0 % (20.5-60.0); Monocytes Absolute Manual 1.15 10^3/uL (0.30-0.80); Monocytes Percent Manual 6.0 % (1.7-12.0); Segmented Neut Absolute Manual 9.40 10^3/uL (1.4-6.5); Segmented Neutrophils % Manual 49.0 (43.0-75.0)
== END 2025-09-28 01:22 | disposition home or self-care (01) ==
PROVIDERS: Emergency Provider Emergency Medicine
DX: J18.9 Pneumonia, unspecified organism (principal); R55 Syncope and collapse; R91.8 Other nonspecific abnormal finding of lung field; F17.200 Nicotine dependence, unspecified, uncomplicated
CPT/HCPCS: 36415; 71045; 80048; 84484; 85007; 85027; 93005; 99285

== ENCOUNTER 2025-11-10 01:09 | Emergency (ER) | payer OTHER, SELFPAY ==
[2025-11-10 01:11] VITALS: BP 173/77; PULSE 95; TEMP 36.5; O2SAT 98; BMI 31.3
--- NOTE | 2025-11-10 01:45 | ED.GENADUL1 ---
HPI HPI - General Adult General Chief complaint: Extremity Problem, Nontraumatic Stated complaint: Lower Pain Time Seen by Provider: 11/10/25 01:11 Source: patient Mode of arrival: walk-in Limitations: no limitations History of Present Illness HPI narrative: Patient is a 65-year-old male presenting to the emergency department for evaluation of right lower extremity pain. Patient states that a few hours ago while he was watching football on TV he started experiencing pain in his right lower extremity. He states the pain is located just below the right knee and his gilmore down to the inside of his right ankle. He denies any injuries to the area. He denies numbness/tingling/weakness in the extremity. He denies any swelling of the extremity. He states he has history of arthritis but no other prior issues with the leg. He states that walking makes the pain better. He took Tylenol for the pain, only minimally helped his symptoms. He denies history of DVT. He is not on anticoagulation. He has no active cancer, no immobilizations, no recent surgery. He is scheduled for an aortic valve replacement and CABG next month. He denies any other systemic symptoms such as fevers, chills, chest pain, shortness of breath, abdominal pain, back pain, or loss of bladder/bowel function. Related Data Home Medications ?Medication ?Instructions ?Recorded ?Confirmed albuterol sulfate 90 mcg/actuation 2 puff inhalation Q4H PRN 09/28/25 09/28/25 aerosol inhaler (Ventolin HFA) shortness of breath or wheezing amlodipine 10 mg tablet 10 mg PO DAILY 09/28/25 09/28/25 aspirin 81 mg tablet,delayed 81 mg PO DAILY 09/28/25 09/28/25 release atorvastatin 80 mg tablet 80 mg PO HS 09/28/25 09/28/25 citalopram 20 mg tablet 30 mg PO DAILY 09/28/25 09/28/25 clonazepam 1 mg tablet 0.5 mg PO HS 09/28/25 09/28/25 empagliflozin 10 mg tablet 25 mg PO DAILY 09/28/25 09/28/25 (Jardiance) isosorbide mononitrate 30 mg 30 mg PO DAILY 09/28/25 09/28/25 tablet,extended release 24 hr metformin 1,000 mg tablet 1,000 mg PO BID 09/28/25 09/28/25 metoprolol tartrate 25 mg tablet 25 mg PO BID 09/28/25 09/28/25 nitroglycerin 0.4 mg sublingual 0.4 mg sublingual Q5M PRN chest 09/28/25 09/28/25 tablet pain omeprazole 20 mg capsule,delayed 20 mg PO DAILY 09/28/25 09/28/25 release theophylline 300 mg 300 mg PO Q24H 09/28/25 09/28/25 tablet,extended release,12 hr tiotropium bromide 2.5 2 puff inhalation Q24H 09/28/25 09/28/25 mcg/actuation mist for inhalation (Spiriva Respimat) valsartan 320 1 tab PO DAILY 09/28/25 09/28/25 mg-hydrochlorothiazide 25 mg tablet Previous Rx's ?Medication ?Instructions ?Recorded azithromycin 250 mg tablet See Rx Instructions PO .COMPLEX #6 09/28/25 (Zithromax Z-Abdon) tabs Allergies Allergy/AdvReac Type Severity Reaction Status Date / Time cefazolin Allergy Unknown itchy Verified 11/10/25 01:19 codeine Allergy Unknown Rash Verified 11/10/25 01:19 naproxen Allergy Unknown Rash Verified 11/10/25 01:19 varenicline (From Chantix) Allergy AMS Verified 11/10/25 01:19 Opioid HPI Opioid Management Most Recent Opioid Data: Last Pain Scale 8 Today, 01:11 Review of Systems ROS Status of ROS 10 or more systems reviewed and unremarkable except as noted in history and below PFSH PFS Medical History (Updated 11/10/25 @ 03:19 by Bulmaro Gaitan DO) Aftercare following left elbow joint replacement surgery ?Z47.1 - Aftercare following joint replacement surgery (ICD-10) ?Z96.622 - Presence of left artificial elbow joint (ICD-10) Sleep apnea ?G47.30 - Sleep apnea, unspecified (ICD-10) Diabetes ?E11.9 - Type 2 diabetes mellitus without complications (ICD-10) COPD (chronic obstructive pulmonary disease) ?J44.9 - Chronic obstructive pulmonary disease, unspecified (ICD-10) Surgical History (Updated 09/28/25 @ 00:35 by Mary Ellen Kearney) Status post left foot surgery ?Z98.890 - Other specified postprocedural states (ICD-10) Social History Smoking status: Current every day smoker Little interest or pleasure in doing things: not at all Feeling down, depressed, or hopeless: not at all Exam Narrative Exam Narrative: CONSTITUTIONAL: Patient is pacing around the room, appears to be in acute pain, answering questions and following commands appropriately SKIN: Was warm and dry, there are no rashes or petechiae in the right lower extremity. EYES: Sclerae white. EARS, NOSE, THROAT: Moist oral mucosa. RESPIRATORY: Nonlabored respirations. CARDIOVASCULAR: Normal rate and regular rhythm. 2+ DP pulse on the right. Cap refill less than 2 seconds in the right toes. GASTROINTESTINAL: Abdomen is nondistended. MUSCULOSKELETAL: There is reproducible point tenderness to palpation over the proximal right tibia and over the medial malleoli. The right lower extremity appears grossly normal without deformities. There is no peripheral edema, calf sizes are equal bilaterally. There is no calf tenderness. There are no overlying skin changes such as erythema, induration. There is no joint effusion. He has full range of motion with knee flexion/extension. Full range of motion with ankle plantarflexion/dorsiflexion. Ambulating with an antalgic gait. No midline L-spine tenderness. Right lower extremity is warm and well-perfused. NEUROLOGIC: Patient is awake and alert. 5/5 strength with knee flexion/extension, hip flexion/extension, ankle dorsi/plantarflexion, and hallux flexion/extension. Sensation intact to light touch throughout the right lower extremity. Constitutional Vital Signs, click to edit/add: Last Vital Signs Temp 97.7 F 11/10/25 01:11 Pulse 95 H 11/10/25 01:11 Resp 18 11/10/25 01:11 BP 173/77 H 11/10/25 01:11 Pulse Ox 98 11/10/25 01:11 O2 Del Method Room Air 11/10/25 01:11 Course Vital Signs Vital signs: Vital Signs Temperature 97.7 F 11/10/25 01:11 Pulse Rate 95 H 11/10/25 01:11 Respiratory Rate 18 11/10/25 01:11 Blood Pressure 173/77 H 11/10/25 01:11 Pulse Oximetry 98 11/10/25 01:11 Oxygen Delivery Method Room Air 11/10/25 01:11 Temperature 97.7 F 11/10/25 01:11 Pulse Rate 95 H 11/10/25 01:11 Respiratory Rate 18 11/10/25 01:11 Blood Pressure 173/77 H 11/10/25 01:11 Pulse Oximetry 98 11/10/25 01:11 Oxygen Delivery Method Room Air 11/10/25 01:11 Medical Decision Making MDM Narrative Medical decision making narrative: Patient is a 65-year-old male presenting to the emergency department with acute onset of right anterior gilmore pain a few hours ago while watching TV. His vital signs on arrival are significant for hypertension, otherwise within normal limits. He is afebrile and hemodynamically stable. On examination, the patient appears to be uncomfortable and is ambulating around the room. There is reproducible tenderness to palpation over the proximal right tibia and medial malleoli. The extremity, however, grossly appears normal and is neurovascularly intact with good distal strength, perfusion, and sensation. Differential diagnosis includes stress fracture, musculoskeletal pain, peripheral neuropathy/nerve entrapment, lumbar radiculopathy, tibialis anterior tendinitis. His compartments are soft and compressible, making compartment syndrome less likely. I did consider acute limb ischemia, however the patient has good distal pulses/perfusion without cyanosis or pallor. He has an EKG from 1 month ago which demonstrated normal sinus rhythm - no A-fib to put him at risk for embolic disease. I did consider DVT, however there is no edema in the leg or calf tenderness. Using the Wells Criteria for DVT, he has a score of 0 putting him at low risk. X-rays were obtained. Over the course of his ED visit he was given oral oxycodone, IM ketorolac, IM Dilaudid for pain. X-rays of the right tib-fib and ankle independently reviewed by myself demonstrated arthritic changes without acute osseous abnormalities. Final read by radiology pending. D-dimer negative. On reevaluation, patient states he still having pain but it is improved since his ED arrival. Repeat examination of the right lower extremity confirmed intact neurovascular status with good distal perfusion/strength/sensation/range of motion. Unclear as to the exact etiology to explain his symptoms. May be neuropathic in nature or from tendinitis/musculoskeletal etiologies. I do believe he is stable for discharge and outpatient follow-up with his PCP. I instructed him to follow-up with his PCP in the next few days for checkup. Return precautions were given including any new or concerning symptoms. Patient understands and agrees to the plan. FINAL IMPRESSION: #Acute right lower extremity pain DISPOSITION: Discharged home CONDITION: Fair Lab Data Lab results reviewed: Yes I reviewed the patient's lab results Labs: Lab Results 11/10/25 Range/Units 02:03 D-Dimer 0.24 (<=0.59) mg/L FEU Imaging Data Right tib fib xray: Attestation: I personally reviewed and interpreted this imaging study as follows: Discharge Plan Discharge Chief Complaint: Extremity Problem, Nontraumatic Clinical Impression: Acute pain of right lower extremity Patient Disposition: Home, Self-Care Time of Disposition Decision: 03:18 Condition: Fair Mode of Transportation: Private Vehicle Prescriptions / Home Meds: No Action albuterol sulfate [Ventolin HFA] 90 mcg/actuation HFA aerosol inhaler 2 puff INHALATION Q4H PRN (Reason: shortness of breath or wheezing) amlodipine 10 mg tablet 10 mg PO DAILY aspirin 81 mg tablet,delayed release (DR/EC) 81 mg PO DAILY atorvastatin 80 mg tablet 80 mg PO HS citalopram 20 mg tablet 30 mg PO DAILY clonazepam 1 mg tablet 0.5 mg PO HS Jardiance 10 mg tablet 25 mg PO DAILY isosorbide mononitrate 30 mg tablet extended release 24 hr 30 mg PO DAILY metformin 1,000 mg tablet 1,000 mg PO BID metoprolol tartrate 25 mg tablet 25 mg PO BID nitroglycerin 0.4 mg tablet, sublingual 0.4 mg sublingual Q5M PRN (Reason: chest pain) omeprazole 20 mg capsule,delayed release(DR/EC) 20 mg PO DAILY theophylline 300 mg tablet extended release 12 hr 300 mg PO Q24H Spiriva Respimat 2.5 mcg/actuation mist 2 puff INHALATION Q24H valsartan-hydrochlorothiazide 320-25 mg tablet 1 tab PO DAILY azithromycin [Zithromax Z-Abdon] 250 mg tablet See Rx Instructions .ROUTE .COMPLEX Qty: 6 0RF Rx Instructions: For 250 mg dose pack: take 500 mg today (day 1), then 250 mg for 4 days (days 2-5) Print Language: Bulgarian Instructions: Leg Pain (ED), Arthritis (ED) Referrals: Physician,Non-Staff, MD [Physician] - 1 week
[2025-11-10] MEDS: OXYCODONE HCL 5 MG TABLET 10 MG PO (01:47)
--- OUTSIDE RECORDS SUMMARY | 2025-11-10 02:20 | XMS_ITS | Clinical Summary ---
Author Organization [facility] Address [address] [place] [address] Phone Care Team Providers Care Aitchbone Breaker Name Role Phone Zena Calvo Primary Care Provider Allergies Active AllergyReactionsCriticalityNoted DateCommentsCephalexinItching, UikffczhgpqEnbt84/09/2024CodeineHeadache,RgqrbolzuxgUhlc87/09/2023Esomeprazole Hives,Nausea/ftzoxspdGax52/09/8398TluozziyhlVgfwzXyqi64/10/2025 shaking heart racing VareniclineHallucinations,FdfjjttuThwq54/09/2023 Medications MedicationSigDispense QuantityRefillsLast FilledStart DateEnd DateStatus Ventolin HFA 90 mcg/actuation inhaler INHALE 2 PUFFS INTO THE LUNGS EVERY 4 HOURS NEEDED FOR 90 DAYSActive clonazePAM (KlonoPIN) 1 mg disintegrating tablet Take 0.5 tablets by mouth as needed at bedtime.Active fish oil concentrate (Brenton-3) 120-180 mg capsule Take 1 tablet by [...] (Nitrostat) 0.4 mg SL tablet Indications:Atherosclerosis of lower b[place] coronary artery of lower [place] heart without angina pectorisPLACE 1 TAB UNDER TONGUE EVERY 5 MIN UP TO 3 DOSES NEEDED FOR CHEST PAIN*CALL 911 IF PAIN PERSIST 25 tablet ctive aspirin 81 mg EC tablet Indications:Atherosclerosis of lower [place] coronary artery of lower [place] heart without angina pectoris,Hypertension, essential, benign,S/P PTCA (percutaneous transluminal coronary angioplasty)Take 1 tablet (81 mg) by mouth once daily. 90 tablet ctive amLODIPine (Norvasc) 10 mg tablet Indications:Hypertension, essential, benignTake 1 tablet (10 mg) by mouth once daily. as directed 90 tablet ctive atorvastatin (Lipitor) 80 mg tablet Indications:Mixed hyperlipidemiaTake 1 tablet (80 mg) by mouth once daily at bedtime. 90 tablet ctive isosorbide mononitrate ER (Imdur) 30 mg 24 hr tablet Indications:Atherosclerosis of lower [place] coronary artery of lower [place] heart without angina pectoris,S/P PTCA (percutaneous transluminal coronary angioplasty),Aortic valve stenosis, etiology of cardiac valve disease unspecifiedTake 1 tablet (30 mg) by mouth once daily. 90 tablet ctive metoprolol tartrate (Lopressor) 25 mg tablet Indications:Hypertension, essential, benignTake 1 tablet (25 mg) by mouth 2 times a day. 180 tablet ctive magnesium oxide 400 mg magnesium capsule Indications:Atherosclerosis of lower [place] coronary artery of lower [place] heart without angina pectorisTake 1 capsule (400 mg) by mouth once daily. 90 capsule ctive valsartan-hydrochlorothiazide (Diovan-HCT) 320-25 mg tablet Indications:Hypertension, essential, benignTake 1 tablet by mouth once daily. 90 tablet ctive citalopram (CeleXA) 20 mg tablet Take by mouth once daily.06/20/2025tive albuterol 2.5 mg /3 mL (0.083 %) nebulizer solution Take 3 mL (2.5 mg) by nebulization every 4 hours if needed.06/30/2025tive amiodarone (Pacerone) 200 mg tablet Indications:Nonrheumatic aortic valve stenosisTake 1 tablet (200 mg) by mouth 2 times a day. Do not fill before November 25, 2025. 60 tablet 312/30/344392/6Active Jardiance 25 mg Take 1 tablet (25 mg) by mouth once daily./iscontinued () omega 6-ksh-bez-fish oil (Fish OiL) 1,000 (120-180) mg capsule Take 2 capsules (2,000 mg) by mouth once daily.Discontinued (Duplicate order) amLODIPine (Norvasc) 5 mg tablet Take 1 tablet (5 mg) by mouth early in the morning.. 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 jeqcfnuv46/21/2025MI 30.0-30.9,adult05/29/2025urrent whxqhp6005/22/2024 BOWENS (dyspnea on exertion)05/22/2024ortic plfyynns52/09/2023therosclerosis of lower [place] coronary artery of lower [place] heart without angina krdtkhyo28/09/2023hest pain09/04/2023OPD (chronic obstructive pulmonary disease)09/04/2023ough syncope mqonkxey17/09/6188Arxjasjk62/09/2023Hypertension, essential, benign 09/04/2023LVH (left ventricular hypertrophy)09/04/2023Mixed hyperlipidemia 09/04/2023S/P PTCA (percutaneous transluminal coronary angioplasty)09/04/2023 Carotid bruit09/04/2023Murmur, heart09/04/2023Intermittent claudication 09/04/2023 Resolved Problems ProblemNoted DateDiagnosed DateResolved DateBMI 29.0-29.9,adult05/22/2024 05/29/2025 Encounters DateTypeDepartmentCare YvowTmgzihtpyyb04/24/2025Prep for Procedure [facility] OVIA [facility] [address] [facility] [address] [place] [address] Marquis Davidson RN CAD in lower brule artery (Primary Dx); Preoperative testing; Coronary artery disease involving lower brule coronary artery of lower [place] heart, unspecified whether angina present; Nonrheumatic aortic (valve) fhqonyni63/24/2025Orders Only [facility] 2 7 [facility] [employer] [facility] [facility] [address] [place] [phone] Marquis Davidson, RN Preoperative testing; Coronary artery disease involving lower brule coronary artery of lower b[place] heart, unspecified whether angina present; Nonrheumatic aortic (valve) dqodgysb87/21/2025 10:00 AM ESTOffice Visit [facility] 2 [address] [facility] [address] [place] [phone] London Weston MD Nonrheumatic aortic valve stenosis (Primary Dx) Discharge Disposition: Home10/17/2025Prep for Procedure [facility] 2 [address] [facility] [address] [place] [phone] London Weston MD Nonrheumatic aortic (valve) stenosis (Primary Dx); Atherosclerotic heart disease of lower b[place] coronary artery with other forms of angina vkrakolq43/21/0992Velbta45/05/2025Telephone [facility] [address] [facility] [address] [place] [address] Cherelle Smith, JUAN LUIS Waitlist Status Rupwzc5609/30/2025Telephone [facility] [address] [facility] [address] [place] [address] Cherelle Smith, JUAN LUIS return call regarding inquiry on faoshz0908/28/2025Telephone [facility] [address] [email or web address] [address] [place] [phone] London Weston MD 08/25/2025Orders Only [facility] [address] [email or web address] [address] [place] [phone] Marquis Davidson, JUAN LUIS 08/15/2025Orders Only [facility] [address] [facility] [address] [place] [phone] Marquis Davidson RN Nonrheumatic aortic (valve) stenosis; Preoperative qqvlhri5308/15/2025Orders Only [facility] [address] [place] [address] [place] [address] Racheal Bridges RN Nonrheumatic aortic (valve) stenosis (Primary Dx)08/15/2025Telephone [facility] [address] [facility] [address] [place] [phone] Racheal Bridges RN 08/11/2025ardiology Conference [facility] [address] [facility] [address] [place] [phone] Joellen Brown RN from Last 3 Months Immunizations ImmunizationAdministration DatesNext DueFlu vaccine (IIV4), preservative free *Check age/dose*11/22/2019 Family History Medical HistoryRelationNameCommentsDiabetesFathermiFatherNo Known ProblemsMother Coronary artery diseaseSistercabgSisterRelationNameStatusCommentsFatherMother Sister Social History Tobacco UseTypesPacks/DayYears UsedDateSmoking Tobacco: AkluudBfiskyqrew1910 - 2024Smokeless Tobacco: Never Tobacco Cessation:Counseling Given: Not Answered Alcohol UseStandard Drinks/WeekCommentsNever0 (1 standard drink = 0.6 oz pure alcohol)PHQ-2AnswerDate RecordedPatient Health Questionnaire-2 Ucdyc526 AUDIT-CAnswerDate RecordedQ1: How often do you have a drink containing alcohol? Never10/17/2025Q2: How many drinks containing alcohol do you have on a typical day when you are drinking?Patient does not drink10/17/2025Q3: How often do you have six or more drinks on one occasion?Never10/17/2025Sex and Gender InformationValueDate RecordedSex Assigned at BirthNot on fileLegal SexMale 10/22/2022 1:52 PM ESTGender IdentityNot on fileSexual OrientationNot on file Last Filed Vital Signs Vital SignReadingTime TakenCommentsBlood Bkftjmed258/6810/17/2025 10:06 AM EST Ibzlz051710/17/2025 10:06 AM DSFGvdimuwbqzl12.8 ??C (98.2 ??F)10/17/2025 10:06 AM ESTRespiratory Rate--Oxygen Tghjafsiuk73%10/17/2025 10:06 AM ESTInhaled Oxygen Concentration--Mnambf74.2 kg (216 lb 9.6 oz)10/17/2025 10:06 AM XOVDghywl912.8 cm (5' 10 )10/17/2025 10:06 AM ESTBody Mass Index31.0810/17/2025 10:06 AM EST Plan of Treatment DateTypeDepartmentCare Team (Latest Contact Info)Yyhxojaxrmn13/13/2026 6:00 AM ESTHospital Encounter [facility] [place] [address] [place] [address] [place] [address] [facility] [place] [address] 12/09/2025 7:30 AM EST - 12/09/2025 2:00 PM ESTSurgery [facility] [place] [address] [place] [address] [place] [address] [place] [address] AORTIC VALVE REPLACEMENT [[id number] (CPT??)]12/10/2025 10:[address] 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 12/09/2025 7:30 AM ESTHealth MaintenanceDue DateLast DoneCommentsCT Colonography 9430Jpcshlrzlae1961olorectal Cancer Xchgnpjej1961iabetes: Hemoglobin A1C1961iabetes: Urine Protein Fpxswdwak1961FIT-DNA (Cologuard)1961FIT1961HIV Kbgbehapr63/02/2467Gsksroichnkrp1961 TSH Level1961MMR Vaccines (1 of 1 - Standard series)2COVID-19 Vaccine (#1)1966Diabetes: Retinopathy Oczaphciu62/02/1971Hepatitis C Ycnbhgeik24/02/1979Hepatitis A Vaccines (1 of 2 - Risk 2-dose series)1980 Pneumococcal Vaccine (1 of 2 - PCV)1980Zoster Vaccines (1 of 2)1980 DTaP/Tdap/Td Vaccines (1 - Tdap)1983PSA Prostate Cancer Screening 2011RSV High Risk: (Elderly (60+) or Population) (1 - Risk 50-74 years 1-dose series)2011Hepatitis B Vaccines (1 of 3 - Risk 3-dose series) 2021ipid PanelYearly Adult Svocpnla64/08/2022 09/02/2021Influenza Vaccine (#1)HIB VaccinesAged OutNo longer eligible based on patient's age to complete this topicHPV VaccinesAged OutNo longer eligible based on patient's age to complete this topicIPV Vaccines Aged OutNo longer eligible based on patient's age to complete this topic Meningococcal VaccineAged OutNo longer eligible based on patient's age to complete this topicRotavirus VaccinesAged OutNo longer eligible based on patient's age to complete this topic Goals GoalPatient Goal TypeAssociated ProblemsRecent ProgressPatient-Stated?Author Autogenerated Goal Care PlanAutogenerated ProblemNoLung, Marquis, figure refinisher and repairer Procedure NamePriorityDate/TimeAssociated DiagnosisCommentsLIPID PANELRoutine 03/02/2021 9:25 AM EDT from Last 3 Months or Most Recently Relevant to Health Maintenance Results * (ABNORMAL) Lipid Panel (03/02/2021 9:25 AM EDT)ComponentValueRef RangeTest MethodAnalysis TimePerformed AtPathologist QtbbyhnsaIkablbmbstv8678 - 199 mg/dLBAPTIST [facility] LABComment: . ?AGE ?DESIRABLE ?? BORDERLINE [...] be performed immediately prior to Metamizole dosing. HDL25.0(A)mg/dLBAPTIST [facility]ALTH [facility] LABComment: . ?AGE ?VERY LOW ?? LOW ? NORMAL ?HIGH ?? 0-19 Y < 35 < 40 40-45 ---- 20-24 Y ---- < 40 >45 ---- >24 Y ---- < 40 40-60 >60 . Cholesterol/HDL Ratio6.8(A)[facility] LABComment: REF VALUES DESIRABLE < 3.4 HIGH RISK > 5.0 LDL-0 - 99 mg/dLBAPTIST [facility] LABComment: . ? NEAR ?BORD ?AGE [...] ALTERNATIVE LDL ASSAY. VLDLSEE COMMENT0 - 40 mg/dLBAPTIST [facility] LABComment:Unable to calculate VLDL.Mkbcxcyluxsog867(H)0 - 149 mg/dLBAPTIST [facility] LABComment: . ?AGE ?DESIRABLE ?? BORDERLINE [...] 5:59 PM EDT Narrative Authorizing ProviderResult TypeResult StatusMicjoelle Wood [facility] BLOOD ORDERABLESFinal ResultPerforming OrganizationAddressCity/State/ZIP CodePhone Number [facility] from Last 3 Months or Most Recently Relevant to Health Maintenance Additional Health Concerns Active ProblemsNoted DateDiagnosed DateAutogenerated Pjzcjhv4610/17/2025 Insurance Care Teams Team MemberRelationshipSpecialtyStart DateEnd Date Zena Calvo DO [address] [place] [address] [facility] - Pxnpbxg82/15/21
--- OUTSIDE RECORDS SUMMARY | 2025-11-10 02:20 | XMS_ITS | Clinical Summary ---
Author Organization [facility] Address [address] [place] [address] Care Team Providers Care Dockworker Name Role Phone Zena Calvo MD Primary Care Provider [phone] Allergies Active AllergyReactionsCriticalityNoted QkceVxgkazzrPvohcvakubUxudgsm46/09/2024 Other Reaction(s): Anaphylaxis, rash CodeineHeadache,VlbigtvDkpufx58/09/2023 Other Reaction(s): Anaphylaxis, irritabilty EsomeprazoleHives,GI rbxirusocvgLxe71/09/2023 Other Reaction(s): Nausea, stomach upset RvdapqiiejCjmdyto48/07/6912UilvfqvembrMwdbsmmcwutbzkBuqt99/09/2023 Other Reaction(s): Swelling, dizziness Medications MedicationSigDispense QuantityRefillsLast FilledStart DateEnd DateStatus acetaminophen (Tylenol) 500 MG tablet Every 4 hours as tutqzi8409/30/2024ctive albuterol HFA 90 mcg/act inhaler Q4H as needed for Shortness Of Pnpsjx9711/06/2024ctive amLODIPine (Norvasc) 5 MG tablet Daily09/30/2024ctive atorvastatin (Lipitor) 80 MG tablet Daily09/30/2024ctive citalopram (CeleXA) 20 MG tablet Take 40 mg by mouth Daily03/31/2025tive clonazePAM (KlonoPIN) 1 MG tablet Daily at xroyrpn6009/30/2024ctive empagliflozin (Jardiance) 25 MG Daily09/30/2024ctive isosorbide mononitrate ER (Imdur) 30 MG 24 hr tablet Every cvwsdsl9912/30/2024tive metFORMIN (Glucophage) 1000 MG tablet Twice daily09/30/2024ctive metoprolol tartrate (Lopressor) 25 MG tablet Twice daily05/22/2024ctive nitroglycerin (Nitrostat) 0.[address] 1 TAB UNDER TONGUE EVERY 5 MIN UP TO 3 DOSES NEEDED FOR CHEST PAIN*CALL 911 IF PAIN NJIBMWX9205/22/2024ctive omega-3 (Fish Oil) 1000 MG capsule Take 1 tablet by mouth in the morning and 1 tablet in the evening.Active omeprazole (PriLOSEC) [address] capsule Take 1 tablet by mouth in the morning.Active theophylline ER (Carlos-24) 300 MG 24 hr capsule Daily09/30/2024ctive valsartan-hydroCHLOROthiazide (Diovan-HCT) 320-25 MG tablet 1 vjeapw0205/22/2024ctive tiotropium (Spiriva Respimat) 2.5 MCG/ACT inhaler INHALE 2 PUFFS BY MOUTH ONCE A DAY04/23/2024ctive magnesium oxide (Mag-Ox) 400 (240 Mg) MG tablet Take 400 mg by mouth Daily12/31/2024tive sulfamethoxazole-trimethoprim (Bactrim DS) 800-160 MG per tablet Take by mouthActive Active Problems ProblemNoted DateDiagnosed DateSebaceous cyst04/03/2025 Family History Medical HistoryRelationNameCommentsBreast cancerMotherColon cancerNeg HxOvarian cancerNeg HxPancreatic cancerNeg IqRfqxgpnzZgahXevuapJovjiwhlJegifwo05 brothers!!FatherDeceasedMotherDeceasedSister6 sisters Social History Tobacco UseTypesPacks/DayYears UsedDateSmoking Tobacco: Every DayCigarettes Tobacco Cessation:Ready to Q uit: Not Asked; Counseling Given: Not Answered Alcohol UseStandard Drinks/WeekCommentsNot Currently0 (1 standard drink = 0.6 oz pure alcohol)Sex and Gender InformationValueDate RecordedSex Assigned at Not on fileLegal HisDqts2402/08/2023 6:47 PM EDTGender IdentityNot on fileSexual OrientationNot on file Last Filed Vital Signs Vital SignReadingTime TakenCommentsBlood Pressure--Pulse--Temperature-- Respiratory Rate--Oxygen Saturation--Inhaled Oxygen Concentration--Vijpam91.3 kg (219 lb)04/03/2025 9:22 AM TOBXktpqn669.8 cm (5' 10 )04/03/2025 9:22 AM EDTBody Mass Index31.42004/03/2025 9:22 AM EDT Plan of Treatment Not on file Insurance Care Teams Team MemberRelationshipSpecialtyStart DateEnd Date Zena Calvo MD [address] [place] [phone] PCP - GeneralFamily Medicine04/02/25
--- OUTSIDE RECORDS SUMMARY | 2025-11-10 02:20 | XMS_ITS | Clinical Summary ---
Author Organization [facility] Address [address] [place] [address], [address] [place] [address] Care Team Providers Care Bone Char Kiln Operator Name Role Phone Unavailable Primary Care Provider Unavailabl e Social History Tobacco UseTypesPacks/DayYears UsedDateSmoking Tobacco: Never AssessedSex and Gender InformationValueDate RecordedSex Assigned at BirthNot on fileLegal Sex Male09/22/2014 10:32 AM EDTGender IdentityNot on fileSexual OrientationNot on file Plan of Treatment Not on file
--- OUTSIDE RECORDS SUMMARY | 2025-11-10 02:20 | XMS_ITS | Encounter Summary ---
Author Organization [facility] Address [address] [place] [address] Phone Care Team Providers Care Generation Technologist Name Role Phone Zena Calvo DO Primary Care Provider Encounter Details DateTypeDepartmentCare Team (Latest Contact Info)Zgzkkivlocm65/24/2025Prep for Procedure [facility] [address] [place], [place] [address]r [address] [place] [address] Marquis Davidson RN CAD in [place] artery (Primary Dx); Preoperative testing; Coronary artery disease involving [place] coronary artery of [place] heart, unspecified whether angina present; Nonrheumatic aortic (valve) stenosis Social History Tobacco UseTypesPacks/DayYears UsedDateSmoking Tobacco: [id number] - 2024Smokeless Tobacco: NeverAlcohol UseStandard Drinks/WeekCommentsNever0 (1 standard drink = 0.6 oz pure alcohol)PHQ-2AnswerDate RecordedPatient Health Questionnaire-2 [id number] RecordedQ1: How often do you have a drink containing alcohol?Never10/17/2025Q2: How many drinks containing alcohol do you have on a typical day when you are drinking?Patient does not drink10/17/2025Q3: How often do you have six or more drinks on one occasion? Never10/17/2025Sex and Gender InformationValueDate RecordedSex Assigned at Not on fileLegal DomPisi44/26/2022 1:52 PM ESTGender IdentityNot on fileSexual OrientationNot on filedocumented as of this encounter Plan of Treatment DateTypeDepartmentCare Team (Latest Contact Info)Ryxxyorvwne25/13/2026 6:00 AM ESTHospital Encounter [facility] [place] [address] [place] [address] [place] [address] Department of Surgery-Cardiac [place] [address] 12/09/2025 7:30 AM EST - 12/09/2025 2:00 PM ESTSurgery [facility] [place] [address] [place] [address] [place] [address] [place] [address] AORTIC VALVE REPLACEMENT [[id number] (CPT??)]12/10/2025 10:10 AM ESTOffice Visit [facility] [address] [facility] [address] [place] [address] Yg Sharma DO [address] [facility] [address] [place] [address] NameTypePriorityAssociated DiagnosesOrder ScheduleComprehensive Metabolic Panel LabRoutine Preoperative testing Coronary artery disease involving [place] coronary artery of [place] heart, unspecified whether angina present Nonrheumatic aortic (valve) stenosis Expected: 10/20/2025 (Approximate), Expires: 10/20/2026Hemoglobin [id number] Preoperative testing Coronary artery disease involving [place] coronary artery of [place] heart, unspecified whether angina present Nonrheumatic aortic (valve) stenosis Expected: 10/20/2025 (Approximate), Expires: 10/20/2026TSH with reflex to Free T4 if abnormalLabRoutine Preoperative testing Coronary artery disease involving [place] coronary artery of [place] heart, unspecified whether angina present Nonrheumatic aortic (valve) stenosis Expected: 10/20/2025 (Approximate), Expires: 10/20/2026BC and Auto Differential LabRoutine Preoperative testing Coronary artery disease involving [place] coronary artery of [place] heart, unspecified whether angina present Nonrheumatic aortic (valve) stenosis Expected: 10/20/2025 (Approximate), Expires: 10/20/2026oagulation ScreenLab Routine Preoperative testing Coronary artery disease involving [place] coronary artery of [place] heart, unspecified whether angina present Nonrheumatic aortic (valve) stenosis Expected: 10/20/2025 (Approximate), Expires: 10/20/2026Staphylococcus aureus/MRSA colonization, CultureMicrobiologyRoutine Preoperative testing Coronary artery disease involving [place] coronary artery of [place] heart, unspecified whether angina present Nonrheumatic aortic (valve) stenosis Expected: 10/20/2025 (Approximate), Expires: 01/18/2026Urinalysis with Reflex CultureLabRoutine Preoperative testing Coronary artery disease involving [place] coronary artery of [place] heart, unspecified whether angina present Nonrheumatic aortic (valve) stenosis Expected: 10/20/2025 (Approximate), Expires: 10/20/2026Type And Screen Is this order related to or an upcoming surgery? Yes; Where will this surg jackeline/delivery be performed? [facility]; What is the date of the surgery? 12/09/2025; Has this patient ever had a transfusion? No; Has this ...Lab Routine Preoperative testing Coronary artery disease involving [place] coronary artery of [place] heart, unspecified whether angina present Nonrheumatic aortic (valve) stenosis Expected: 10/20/2025 (Approximate), Expires: 10/20/2026FibrinogenLabRoutine Preoperative testing Coronary artery disease involving [place] coronary artery of [place] heart, unspecified whether angina present Nonrheumatic aortic (valve) stenosis Expected: 10/20/2025 (Approximate), Expires: 10/20/2026Lipid PanelLabRoutine Preoperative testing Coronary artery disease involving [place] coronary artery of [place] heart, unspecified whether angina present Nonrheumatic aortic (valve) stenosis Expected: 10/20/2025 (Approximate), Expires: 10/20/2026NamePriorityAssociated DiagnosesDate/TimeREPLACEMENT, AORTIC VALVE Nonrheumatic aortic (valve) stenosis Atherosclerotic heart disease of [place] coronary artery with other forms of angina pectoris 12/09/2025 7:30 AM ESTCABG, 2 OR MORE VESSELS Nonrheumatic aortic (valve) stenosis Atherosclerotic heart disease of [place] coronary artery with other forms of angina pectoris 12/09/2025 7:30 AM ESTdocumented as of this encounter Goals GoalPatient Goal TypeAssociated ProblemsRecent ProgressPatient-Stated?Author Autogenerated Goal Care PlanAutogenerated ProblemMarquis Johnson, JUAN LUISdocumented as of this encounter Visit Diagnoses Diagnosis Nonrheumatic aortic (valve) stenosis Atherosclerotic heart disease of [place] coronary artery with other forms of angina pectoris CAD in [place] artery- Primary Preoperative testing Unspecified pre-operative examination Coronary artery disease involving [place] coronary artery of [place] heart, unspecified whether angina present Nonrheumatic aortic (valve) stenosis Nonrheumatic aortic (valve) stenosis Atherosclerotic heart disease of [place] coronary artery with other forms of angina pectoris documented in this encounter Additional Health Concerns Active ProblemsNoted DateDiagnosed DateAutogenerated Fgdeahd41/21/2025Assessment Noted TimeA fall risk assessment has been completed for the adogsin0010/17/2025 10:02 AM ESTdocumented as of this encounter Care Teams Team MemberRelationshipSpecialtyStart DateEnd Date Zena Calvo DO [address] [place] [address] PCP - Pykccql38/15/21documented as of this encounter
[2025-11-10] MEDS: KETOROLAC TROMETHAMINE 30 MG/ML VIAL IM (02:46)
[2025-11-10] MEDS: HYDROMORPHONE HCL 0.5 MG/0.5 ML SYRINGE IM (02:46)
[2025-11-10] MEDS: OXYCODONE HCL 5 MG TABLET PO (03:27)
== END 2025-11-10 03:41 | disposition home or self-care (01) ==
PROVIDERS: Emergency Provider Student in an Organized Health Care Education/Training Program; PCP Student in an Organized Health Care Education/Training Program
DX: M79.604 Pain in right leg (principal); F17.200 Nicotine dependence, unspecified, uncomplicated
CPT/HCPCS: 36415; 73590; 73610; 85378; 96372; 99284; J1171; J1885